=== PATIENT | male | born 1985 | race Caucasian/White ===

== ENCOUNTER 2023-11-28 15:40 | Outpatient (REF) | payer SELFPAY ==
[2023-11-28 16:02] LABS: MANUAL DIFF FLAG NO
[2023-11-28 17:37] LABS: Basophils Percent Auto 0.4 % (0-2); Eosinophils Absolute Auto 0.2 X10*3/uL (0.0-0.4); Hematocrit 44.6 % (42.0-52.0); Hemoglobin 15.6 g/dl (14.0-18.0); Imm Gran Abs Auto 0.02 X10*3/uL (0.00-0.03); Imm Gran Pct Auto 0.2 % (0.0-0.4); Lymphocytes Absolute Auto 2.2 X10*3/uL (1.2-4.9); Lymphocytes Percent Auto 23.5 % (20-40); Mean Corpuscular Volume 79.9 fL (80.0-98.0); Mean Platelet Volume 10.2 fL (9.4-12.4); Monocytes Absolute Auto 0.8 X10*3/uL (0.1-1.2); Monocytes Percent Auto 8.5 % (2-11); Neutrophils Percent Auto 65.4 % (45-73); Platelet Count 314 X10*3/uL (160-400); Red Blood Count 5.58 X10*6/uL (4.60-5.80); Red Cell Distribution Width 12.6 % (11.0-16.0); White Blood Count 9.2 X10*3/uL (4.8-10.8)
[2023-11-28 18:00] LABS: Alanine Aminotransferase 44 U/L (0-40); Albumin Level 4.5 g/dL (3.5-5.0); Alkaline Phosphatase 101 U/L (39-117); Anion Gap 16 (12-20); Aspartate Amino Transferase 26 U/L (5-37); Bilirubin Total 0.7 mg/dL (0.0-1.0); Blood Urea Nitrogen 9 mg/dL (9-16); Calcium 9.8 mg/dL (8.4-10.2); Carbon Dioxide 26 mmol/L (22-29); Chloride 102 mmol/L (96-108); Cholesterol 199 mg/dL (<200); Estimated Glomerular Filt Rate > 60; Glucose Fasting 87 mg/dL (60-99); HDL Cholesterol 32 mg/dL (>40); LDL Cholesterol Calculated 148 mg/dL (<100); Potassium 3.1 mmol/L (3.3-5.1); Sodium 141 mmol/L (135-145); Triglycerides 97 mg/dL (<150)
[2023-11-28 18:09] LABS: Appearance Urine Cloudy; Color Urine Yellow; Glucose Urine UA Negative (Negative); Leukocyte Esterase Urine Trace (Negative); Nitrite Urine Negative (Negative); PH 7.5 (5.0-9.0); Specific Gravity - Urine 1.015 (1.005-1.025); UMIC TRIGGER UACC YES; Urine Blood Negative (Negative); Urine Ketones Negative (Negative); Urine Protein 30 (1+) mg/dL (Neg-Trace)
[2023-11-28 18:15] LABS: TSH reflex Free T4 1.87 uIU/mL (0.32-4.0)
[2023-11-28 18:20] LABS: Bacteria Urine None Seen (None Seen); Hyaline Casts Urine 0-2 /LPF (0-2); RBC Urine 0-2 /HPF (0-2); Squamous Epithelial Cell Urine 0-2 /HPF (0-2); WBC Urine 0-5 /HPF (0-5)
== END 2023-11-28 15:41 | disposition home or self-care (01) ==
LOC: HO.LAB 15:40
PROVIDERS: PCP Nurse Practitioner Family; Visit Provider Nurse Practitioner Family
DX: I10 Essential (primary) hypertension (principal)
CPT/HCPCS: 36415; 80053; 80061; 81001; 84443; 85025

== ENCOUNTER 2024-03-15 16:35 | Outpatient (AMB) | payer OTHER, SELFPAY ==
--- NOTE | 2024-03-15 16:41 | MHC.PC.OV ---
Vital Signs 03/15/24 16:43 Height 5 ft 5 in Weight 175 lb BMI 29.1 BP 160/100 H Blood Pressure Location Rt brachial Position Sitting Pulse 72 Pulse Source Pulse Oximeter Pulse Oximetry (%) 98 Oxygen Delivery Method Room Air Intake Visit Reasons: PE Intake Note: Patient here for physical exam. Allergies lisinopril [LISINOPRIL] Adverse Reaction (Unknown, Unverified 03/15/24 16:44) DRY COUGH Tobacco use date assessed: 03/15/24 Dental Screening Dental Screen Date: 03/15/24 Did you have a dental visit in the last 12 months?: No Did you have a dental problem in the last 6 months where you did not have access to dental care?: No Was dental information given to patient?: No HPI PE HPI Details Pt is here for a PE. Will order labs. Pt has been out of his losartan for approximately 1 week. He has refilled this and will start taking it again. Will have pt monitor his blood pressure at home and record readings, he will let me know if it sustains above 140/90. Denies chest pain, shortness of breath, headache, dizziness, and blurred vision. Pt is interested in seeing a therapist. Will have team reach out to pt. Denies any SI and HI. [facility] Medical History Anxiety and depression HTN (hypertension) Surgical History No pertinent past surgical history Family History Father Obesity HTN (hypertension) High cholesterol CVD (cardiovascular disease) History of heart bypass surgery Mother HTN (hypertension) Anxiety Maternal Uncle Substance use disorder Mental health disorder Social History Housing: House Patient Tobacco Use Status: Never used Tobacco e-Cigarette/Vaping Use: Never Used Second Hand Smoke Exposure: No service: No Current occupational status: employed Current occupation: [employer] Current occupational exposures/hazards: No Cognitive needs: No Hearing needs: No Vision needs: Yes Questionnaire PHQ-9 Over the last 2 weeks, how often have you been bothered by any of the following problems? [id number] - PHQ-9 Billing: Patient declined-do not bill Source: Developed by Drs. Rodrigo Abarca, Pauly Dhaliwal, Jay Feliciano and colleagues, with an educational josé luis from [employer]. Thrive Questionnaire Date Thrive assessed: 03/15/24 What is your living situation today?: I choose not to answer this question Within the past 12 months, did the food you bought not last and you didn't have the money to get more?: I choose not to answer this question Within the past 12 months, did you worry whether your food would run out before you got money to buy more?: I choose not to answer this question Do you have trouble paying for medicines?: I choose not to answer this question Do you have trouble getting transportation to medical appointments?: I choose not to answer this question Do you have trouble paying your heating and electricity bill?: I choose not to answer this question Do you have trouble taking care of your child, family member or friend?: I choose not to answer this question Do you have trouble with day-to-day activities such as bathing, preparing meals, shopping, managing finances, etc.?: I choose not to answer this question Are you currently unemployed and looking for a job?: I choose not to answer this question Are you interested in more education?: I choose not to answer this question Currently or been in a relationship where the following occur: I choose not to answer this question THRIVE Score: 0 AUDIT C Alcohol Use Questionnaire (AUDIT-C) 1. How often do you have a drink containing alcohol?: 4 or more times a week 2. How many drinks containing alcohol do you have on a typical day when you are drinking?: 1 or 2 3. How often do you have six or more drinks on one occasion?: Never Total Score: 4 Score Reviewed/Action Taken: No GANESH-7 AMB Questionnaire GANESH-7 Date GANESH - 7 assessed: 03/15/24 Source: Developed by Drs. Rodrigo Abarca, Pauly Dhaliwal, Jay Feliciano and colleagues, with an educational josé luis from [employer]. GANESH-7 Assessment Billing GANESH-7 Assessment Tool: pt declined-do not bill Review of Systems Const Denies chills and Denies fever(s) Eyes Denies blurry vision ENT Denies vertigo, Denies dizziness and Denies sore throat Card Denies chest pain at rest, Denies chest pain with activity, Denies diaphoresis, Denies dyspnea and Denies dyspnea on exertion Resp Denies cough, Denies dyspnea, Denies dyspnea on exertion and Denies wheezing GI Denies abdominal pain, Denies melena, Denies hematochezia, Denies constipation, Denies diarrhea and Denies loose stools Denies hematuria Musc Denies numbness and Denies tingling Skin/Breast Denies lesions Neuro Denies vertigo, Denies dizziness, Denies numbness and Denies tingling Psych Denies anxiety, Denies depression, Denies homicidal ideation, Denies suicidal ideation and Denies other (substance abuse) Aller/Immun Denies wheezing Physical exam (Primary Care) Vital Signs: Last Vital Signs Pulse 72 03/15/24 16:43 BP 160/100 H 03/15/24 16:43 Pulse Ox 98 03/15/24 16:43 Oxygen Delivery Method Room Air 03/15/24 16:43 BMI result Body Mass Index 29.1 Tobacco/Smoking Status: Tobacco use Status Tobacco use date assessed 03/15/24 03/15/24 16:49 Patient Tobacco Use Status Never used Tobacco 03/15/24 16:43 e-Cigarette/Vaping Use Never Used 03/15/24 16:43 Thrive Assessment: Date of Thrive Assessment Date Thrive assessed 03/15/24 03/15/24 16:53 Currently or been in a relationship where the following occur: I choose not to answer this question Const General: cooperative Nutritional Appearance: well nourished Orientation/consciousness: patient oriented x3 HENMT Head: Yes normal to inspection, Yes normocephalic and Yes atraumatic Ears: TM's normal bilaterally Eyes General: appearance normal, both eyes and all related structures Alignment and Position: alignment normal and position normal Neck Neck: Yes normal visual inspection and Yes no lymphadenopathy Thyroid: Thyroid normal Resp Effort & Inspection: normal respiratory effort Auscultation: clear to auscultation bilaterally Cardio Rate: regular rate Rhythm: regular rhythm Heart sounds: S1 normal heart sound present, S2 normal heart sound present and no murmurs GI Palpation (GI): Soft to palpation and nontender Auscultation: normal bowel sounds Male General Exam: Yes normal external exam Penis: normal penis Scrotum: scrotum normal, testes descended bilaterally and no inguinal hernias Testes: no testicular mass Skin Other: multiple skin tags to eyelid and bilat axillary regions Rashes: no rashes Neuro General: patient oriented x3, moves all extremities, no focal motor deficits and deep tendon reflexes 2+ bilaterally Romberg Test: Negative Psych Appearance: grossly normal Mental Status: mental status grossly normal Speech and movement: Normal speech and movement present Affect: normal affect Attitude: cooperative Thought process: Normal thought process present Thought content: Normal thought content present Insight: Good insight present (Psych) Judgement: Good judgement present (Psych) Assessment and Plan Assessment & Plan (1) HTN (hypertension): Code(s): I10 - Essential (primary) hypertension (2) Encounter for routine adult physical exam with abnormal findings: Code(s): Z00. - Encounter for general adult medical examination with abnormal findings Orders: Orders Complete Blood Count Auto Diff Today I10 - Essential (primary) hypertension, Z00. - Encounter for general adult medical examination with abnormal findings Comprehensive [place]. Panel Fast Today I10 - Essential (primary) hypertension, Z00. - Encounter for general adult medical examination with abnormal findings TSH reflex Free T4 Today I10 - Essential (primary) hypertension, Z00.01 - Encounter for general adult medical examination with abnormal findings UA CC w/rflx Micro + Cult Today I10 - Essential (primary) hypertension, Z00. - Encounter for general adult medical examination with abnormal findings Lipid Panel Today I10 - Essential (primary) hypertension, Z00.01 - Encounter for general adult medical examination with abnormal findings Coding Level of Care Code Est Pt Prev Care 40-64y(78961) Diagnoses HTN (hypertension) I10 Encounter for routine adult physical exam with abnormal findings Z.
[2024-03-15 16:43] VITALS: BP 160/100; PULSE 72; O2SAT 98; BMI 29.1
== END 2024-03-15 17:02 | disposition home or self-care (01) ==
PROVIDERS: Visit Provider Nurse Practitioner Family
DX: Z00.00 Encounter for general adult medical examination without abnormal findings (principal); I10 Essential (primary) hypertension
CPT/HCPCS: 99396

== ENCOUNTER 2024-04-25 12:56 | Emergency (ER) | payer OTHER, SELFPAY ==
--- NOTE | 2024-04-25 12:58 | ED_ITS ---
HPI - General Adult General Chief complaint: General Medical Stated complaint: Medication refill Time Seen by Provider: 04/25/24 13:56 Source: patient and old records reviewed Mode of arrival: ambulatory Limitations: no limitations History of Present Illness ED Provider: TACHO AGUILERA narrative: 39 yo male with PMH of HTN on losartan which he was able to fill and restart today - lost his insurance but able to get partial safety net. He also has been on clonazepam 1mg PRN daily last dose Tuesday now feels increased anxiety, racing heart, fatigue and malaise, nausea - he notes he tried to get clon[facility]epam but [facility] would not fill it due to insurance issue. He denies heavy ETOH abuse. No seizures. He does have hx of low K in past, no diarrhea, no cramps. MD complaint: ran out of meds Onset (ago): day(s) (Tuesday) Radiation: non-radiation Severity: moderate Relieving factors: none Exacerbating factors: other (lack of medications) Associated symptoms: loss of appetite, malaise and weakness Treatments prior to arrival: none Related Data Previous Rx's ?Medication ?Instructions ?Recorded venlafaxine 75 mg capsule,extended 75 mg PO .COMPLEX 90 days #270 caps 06/10/23 release 24 hr losartan 100 mg tablet 100 mg PO DAILY #30 tabs 03/07/24 clonazepam 1 mg tablet 1 mg PO DAILY PRN anxiety 30 days 04/20/24 #30 tabs clonazepam 1 mg tablet 1 mg PO DAILY PRN anxiety #25 tabs 04/25/24 Allergies Allergy/AdvReac Type Severity Reaction Status Date / Time lisinopril [LISINOPRIL] AdvReac Unknown DRY COUGH Verified 04/25/24 13:07 Review of Systems 2 Review of Systems: Constitutional : No Fever, No Chills, No Fatigue ENT/Mouth : No sore throat, No Rhinorrhea Eyes: No Eye Pain, No Swelling, No Redness Cardiovascular : No Chest Pain, No SOB, No Dyspnea on Exertion Respiratory : No Cough, No Sputum Gastrointestinal : pos Nausea, No Vomiting, No Diarrhea, No abdominal Pain Genitourinary : No Dysuria, No Urinary Frequency, No Hematuria, Musculoskeletal : No joint pain, No Myalgias, No Joint Swelling Skin : No Skin Lesions, No rash Neuro : pos Weakness, No Numbness, No Dizziness, positive Headache Psych : No Anxiety/Panic, No Depression Heme/Lymph: No Bruising, No Bleeding,No Lymphadenopathy All other systems reviewed and are negative [facility] Past Medical History Attestation statement: The following information was validated with the patient. Source: old records reviewed Medical History Anxiety and depression HTN (hypertension) Surgical History No pertinent past surgical history Family History Family History Father Obesity HTN (hypertension) High cholesterol CVD (cardiovascular disease) History of heart bypass surgery Mother HTN (hypertension) Anxiety Maternal Uncle Substance use disorder Mental health disorder Social History Social History Housing: House Patient Tobacco Use Status: Never used Tobacco e-Cigarette/Vaping Use: Never Used Second Hand Smoke Exposure: No Advance Directives: No Do you have a plan to hurt others: No Plan service: No Current occupational status: employed Current occupation: [employer] Current occupational exposures/hazards: No Cognitive needs: No Hearing needs: No Vision needs: Yes Physical Exam ED Vital Signs: Vital Signs - 24 hr 04/25/24 12:59 04/25/24 14:13 Temperature 96.2 F L 97.9 F Pulse Rate 97 102 H Respiratory Rate 18 15 Blood Pressure 177/122 H 179/108 H Pulse Oximetry 100 100 Oxygen Delivery Method Room Air Room Air BMI result Body Mass Index 29.2 Appearance: Alert. Oriented X3. No acute distress. anxious Eyes: Pupils equal, round and reactive to light. ENT: Pharynx normal. Neck: Normal inspection. Neck supple. CVS: Normal heart rate and rhythm. Pulses normal. Respiratory: No respiratory distress. Breath sounds normal. Abdomen: Soft and non-tender. Skin: Skin warm and dry. Normal skin color. Normal skin turgor. Extremities: No lower extremity edema. Neuro: Oriented X 3. No motor deficit. No sensory deficit. Course Course Course Narrative: This is an RME: Additional HPI, ROS, PE not included below will be deferred to primary provider. RME assessment and note performed by: Jessie Lozano PA-C This is a [id number]-male, with a hx of HTN and anxiety, who presents to the ER with complaints of difficulty sleeping, loss of appetite, high anxiety, racing heart rate, nausea, headache x 3 days. Pt states that he lost his insurance and has been without his clonazepam for 3 days. Plan: Labs, EKG, further ER evaluation needed. Medications Administered Generic Name Dose Route Start Last Admin Trade Name Freq PRN Reason Stop Dose Admin Sodium Chloride 1,000 mls @ 100 mls/hr 04/25/24 14:00 04/25/24 14:52 Ns IVCONT 100 mls/hr .Q10H RASHEL Administration Discontinued Medications Generic Name Dose Route Start Last Admin Trade Name Freq PRN Reason Stop Dose Admin Clonazepam 2 mg 04/25/24 14:21 04/25/24 14:43 Clonazepam 1 Mg Tablet PO 04/25/24 14:22 2 mg ONCE ONE Administration Potassium Chloride 10 meq in 100 mls @ 100 mls/hr 04/25/24 14:00 04/25/24 14:47 Potassium Chloride/H20 IV 04/25/24 14:59 100 mls/hr ONCE ONE Administration Potassium Chloride 40 meq 04/25/24 14:00 04/25/24 14:43 Potassium Chloride Packet 20 Meq Packet PO 04/25/24 14:01 40 meq ONCE ONE Administration Medical Decision Making Medical Decision Making MDM Narrative: 39 yo male with HTN and anxiety here feeling off and anxious due to lack of clonazepam at this time will obtain labs, EKG and start on IV and oral K. Will start on oral clonazepam as well can refill at [facility] per CM his safety net will cover it. Denies ETOH withdrawal. Differential Diagnosis Differential Diagnoses: The differential diagnosis associated with the presentation includes lyte abnormality, anxiety, non compliance Admission/Observation Consideration of admission/observation: Escalation of care including admission/observation considered VS improving he is feeling better suspect BP due to lack of losartan but he was able to fill today Lab Data MDM Lab Attestation statement: I reviewed the patient's lab results. 04/25/24 13:24 04/25/24 13:24 Labs: Lab Results 04/25/24 Range/Units 13:24 WBC 13.4 H (4.8-10.8) X10*3/uL RBC 5.69 (4.60-5.80) X10*6/uL Hgb 16.5 (14.0-18.0) g/dl Hct 45.2 (42.0-52.0) % MCV 79.4 L (80.0-98.0) fL MCH 29.0 (27.0-33.0) pg MCHC 36.5 H (31.0-36.0) g/dl RDW 12.4 (11.0-16.0) % Plt Count 364 (160-400) X10*3/uL MPV 9.3 L (9.4-12.4) fL Immature Gran % (Auto) 0.4 (0.0-0.4) % Neut % (Auto) 69.1 (45-73) % Lymph % (Auto) 21.4 (20-40) % Dane % (Auto) 7.8 (2-11) % Eos % (Auto) 0.9 (0-4) % Baso % (Auto) 0.4 (0-2) % Lymph # (Auto) 2.9 (1.2-4.9) X10*3/uL Dane # (Auto) 1.1 (0.1-1.2) X10*3/uL Eos # (Auto) 0.1 (0.0-0.4) X10*3/uL Baso # (Auto) 0.1 (0.0-0.2) X10*3/uL Abs Immat Gran (auto) 0.05 H (0.00-0.03) X10*3/uL Absolute Neuts (auto) 9.2 H (2.0-8.3) x10*3/uL Absolute Nucleated RBC 0.000 (0.0-0.012) X10*3/uL Nucleated RBC % (auto) 0.0 (0.0-0.2) /100WBC Sodium 140 (135-145) mmol/L Potassium 2.9 L* (3.3-5.1) mmol/L Chloride 105 (96-108) mmol/L Carbon Dioxide 22 (22-29) mmol/L Anion Gap 16 (12-20) BUN 8 L (9-16) mg/dL Creatinine 0.87 (0.5-1.4) mg/dL Estim Creat Clear Calc 108.6 Estimated GFR > 60 Random Glucose 103 (60-115) mg/dL Calcium 10.2 (8.4-10.2) mg/dL Magnesium 2.1 (1.6-2.6) mg/dL Total Bilirubin 1.3 H (0.0-1.0) mg/dL Direct Bilirubin 0.4 (0.0-0.5) mg/dL AST 18 (5-37) U/L ALT 32 (0-40) U/L Alkaline Phosphatase 90 (39-117) U/L Troponin I High Sens < 2.7 (<3.5-35.0) ng/L Total Protein 8.4 H (6.5-8.0) g/dL Albumin 4.9 (3.5-5.0) g/dL Ethyl Alcohol < 10 mg/dL Independent Interpretation I performed an independent interpretation of an: EKG Interpretation: Rate: 97 Rhythm: NSR [place]: left Normal P waves. Normal MAMIE. Normal QRS complex. ST T wave : no VIELKA, inverted t waves V1 qTC: 464 prior studies: no prior The study has been interpreted contemporaneously by me. . External Record Review External record reviewed: Outpatient record Prescription Management I considered prescription management with: Other Discharge Plan Discharge Clinical Impression: Acute hypokalemia, Acute anxiety Patient Disposition: Home, Self-Care Instructions: Hypokalemia (ED), Anxiety (ED) Additional Instructions: return for palpitations, muscle cramps or any other concerns should be able to fill prescription at [facility] return for any worsening symptoms or concerns. Prescriptions: New clonazepam 1 mg tablet 1 mg PO DAILY PRN (Reason: anxiety) Qty: 25 0RF Rx Instructions: chronic prescription insurance ran out on safety net No Action venlafaxine 75 mg capsule,extended release 24hr 75 mg PO .COMPLEX 90 Days Qty: 270 1RF Rx Instructions: 75 mg PO TID; losartan 100 mg tablet 100 mg PO DAILY Qty: 30 4RF clonazepam 1 mg tablet 1 mg PO DAILY PRN (Reason: anxiety) 30 Days Qty: 30 0RF Print Language: Icelandic
[2024-04-25 12:59] VITALS: BP 177/122; PULSE 97; RESP 18; TEMP 35.7; O2SAT 100; BMI 29.2
--- NOTE | 2024-04-25 13:05 | ECG_ITS ---
Test Reason : ANXIETY Blood Pressure : / mmHG Vent. Rate : 097 BPM Atrial Rate : 097 BPM P-R Int : 184 ms QRS Dur : 094 ms QT Int : 366 ms P-R-T Axes : 000 -29 013 degrees QTc Int : 464 ms Normal sinus rhythm Leftward axis nonspecific T wave changes Abnormal ECG No previous ECGs available Referred By: Jessie Lozano Electronically Signed By:Horacio Monsivais
[2024-04-25 13:29] LABS: MANUAL DIFF FLAG NO
[2024-04-25 13:33] LABS: Basophils Absolute Auto 0.1 X10*3/uL (0.0-0.2); Basophils Percent Auto 0.4 % (0-2); Eosinophils Absolute Auto 0.1 X10*3/uL (0.0-0.4); Eosinophils Percent Auto 0.9 % (0-4); Hematocrit 45.2 % (42.0-52.0); Hemoglobin 16.5 g/dl (14.0-18.0); Imm Gran Abs Auto 0.05 X10*3/uL (0.00-0.03); Imm Gran Pct Auto 0.4 % (0.0-0.4); Lymphocytes Absolute Auto 2.9 X10*3/uL (1.2-4.9); Lymphocytes Percent Auto 21.4 % (20-40); Mean Corpuscular HGB Conc 36.5 g/dl (31.0-36.0); Mean Corpuscular Volume 79.4 fL (80.0-98.0); Mean Platelet Volume 9.3 fL (9.4-12.4); Monocytes Absolute Auto 1.1 X10*3/uL (0.1-1.2); Monocytes Percent Auto 7.8 % (2-11); Neutrophils Absolute Auto 9.2 x10*3/uL (2.0-8.3); Neutrophils Percent Auto 69.1 % (45-73); Platelet Count 364 X10*3/uL (160-400); Red Blood Count 5.69 X10*6/uL (4.60-5.80); Red Cell Distribution Width 12.4 % (11.0-16.0); White Blood Count 13.4 X10*3/uL (4.8-10.8)
[2024-04-25 13:56] LABS: Alanine Aminotransferase 32 U/L (0-40); Albumin Level 4.9 g/dL (3.5-5.0); Alkaline Phosphatase 90 U/L (39-117); Anion Gap 16 (12-20); Aspartate Amino Transferase 18 U/L (5-37); Bilirubin Direct 0.4 mg/dL (0.0-0.5); Bilirubin Total 1.3 mg/dL (0.0-1.0); Blood Urea Nitrogen 8 mg/dL (9-16); Calcium 10.2 mg/dL (8.4-10.2); Carbon Dioxide 22 mmol/L (22-29); Chloride 105 mmol/L (96-108); Creatinine Clr Calc Pharmacy 108.6; Estimated Glomerular Filt Rate > 60; Glucose Random 103 mg/dL (60-115); Potassium 2.9 mmol/L (3.3-5.1); Sodium 140 mmol/L (135-145); Total Protein 8.4 g/dL (6.5-8.0)
[2024-04-25 14:08] LABS: Troponin-I High Sensitivity < 2.7 ng/L (<3.5-35.0)
[2024-04-25 14:13] VITALS: BP 179/108; PULSE 102; RESP 15; TEMP 36.6; O2SAT 100
[2024-04-25 14:22] LABS: Ethanol < 10 mg/dL; Magnesium 2.1 mg/dL (1.6-2.6)
[2024-04-25] MEDS: clonazePAM 1 MG TABLET 2 MG PO (14:43)
[2024-04-25] MEDS: Potassium Chloride Packet 20 MEQ PACKET 40 MEQ PO (14:43)
[2024-04-25] MEDS: Potassium Chloride/H20 10 MEQ/100 ML PIGGYBACK 100 MEQ IV (14:47)
[2024-04-25] MEDS: 0.9 % Sodium Chloride 1,000 ML 100 ML IVCONT (14:52)
[2024-04-25 16:07] VITALS: BP 162/122; PULSE 91; RESP 18; TEMP 36.6; O2SAT 98
== END 2024-04-25 16:13 | disposition home or self-care (01) ==
PROVIDERS: Physician Assistant Medical; Emergency Provider Emergency Medicine; PCP Nurse Practitioner Family
DX: E87.6 Hypokalemia (principal); F41.1 Generalized anxiety disorder; F43.0 Acute stress reaction; R53.1 Weakness; R94.31 Abnormal electrocardiogram [ECG] [EKG]; Z76.0 Encounter for issue of repeat prescription; Z51.81 Encounter for therapeutic drug level monitoring; Z79.899 Other long term (current) drug therapy
CPT/HCPCS: 36415; 80048; 80076; 80307; 83735; 84484; 85025; 93005; 96365; 96366; 99284; 99285; J3480

== ENCOUNTER → 2024-04-25 13:05 | Outpatient (BNV) | payer SELFPAY | PROVIDERS: Emergency Provider Emergency Medicine; PCP Nurse Practitioner Family; Visit Provider Internal Medicine Cardiovascular Disease | DX: R94.31 Abnormal electrocardiogram [ECG] [EKG] (principal) | CPT/HCPCS: 93010 ==

== ENCOUNTER 2024-06-13 15:39 | Outpatient (AMB) | payer OTHER, SELFPAY ==
--- NOTE | 2024-06-13 15:42 | MHC.OFFWIV ---
Intake Vital Signs 06/13/24 15:46 Weight 175 lb BP 146/90 H Blood Pressure Location Rt brachial Position Sitting Pulse 105 H Pulse Source Pulse Oximeter Pulse Oximetry (%) 96 Oxygen Delivery Method Room Air Intake Visit Reasons: EP rt eye swollen Intake Note: Patient here for right eye swelling that started last night w/just some slight itching and woke up w/redness and swollen. Patient Tobacco Use Status: Never used Tobacco Allergies lisinopril [LISINOPRIL] Adverse Reaction (Unknown, Verified 06/13/24 15:46) DRY COUGH Do you need a note to return to daycare/school/sports/work: Yes HPI EP rt eye swollen HPI Details This note is constructed using voice recognition software. While every effort has been made to ensure accuracy, mandarin speaking nanny errors may have been included. The patient is a 39 year old male who presents to the clinic today with right eye swelling since yesterday. No change in vision. He has a contact wearer. He is wearing glasses today. He did not get anything in his eye. COUNT INCLUDES THE [facility] Medical History Anxiety and depression HTN (hypertension) Surgical History No pertinent past surgical history Family History Father Obesity HTN (hypertension) High cholesterol CVD (cardiovascular disease) History of heart bypass surgery Mother HTN (hypertension) Anxiety Maternal Uncle Substance use disorder Mental health disorder Social History Housing: House Patient Tobacco Use Status: Never used Tobacco e-Cigarette/Vaping Use: Never Used Second Hand Smoke Exposure: No service: No Current occupational status: employed Current occupation: [employer] Current occupational exposures/hazards: No Cognitive needs: No Hearing needs: No Vision needs: Yes Review of Systems Const All systems reviewed & are unremarkable except as noted in HPI and below Physical Exam Vital Signs: Last Vital Signs Pulse 105 H 06/13/24 15:46 BP 146/90 H 06/13/24 15:46 Pulse Ox 96 06/13/24 15:46 Oxygen Delivery Method Room Air 06/13/24 15:46 Const General: cooperative, healthy appearing, comfortable, no acute distress and alert Orientation/consciousness: patient oriented x3 Limitations: no limitations HEENT Head: Yes normal to inspection and Yes normocephalic Ears: hearing grossly normal bilaterally General nose exam: Normal external nose present Face and sinus: Yes normal facial exam and Yes sinuses nontender Mouth: Normal oral and palatal mucosa present and tongue normal Teeth and gingiva: dentition normal Throat: Yes posterior oropharynx normal Eyes Other: Hordeolum present to left lower eyelid. Visual Oneill: normal visual oneill by confrontation Conjunctivae: conjunctivae normal Sclerae: sclerae normal Corneas: corneas normal Pupils: Equal, round and reactive pupils present EOM: EOMs intact bilaterally Direct Ophthalmoscopy: normal light reflex Skin General skin exam: no rashes or lesions noted, elasticity normal and turgor normal Neuro General: patient oriented x3 Cranial nerves: Yes Equal, round and reactive pupils present Psych Appearance: grossly normal Mental Status: mental status grossly normal Speech and movement: Normal speech and movement present Affect: normal affect Assessment & Plan Assessment & Plan (1) Hordeolum externum left lower eyelid: Code(s): H00.015 - Hordeolum externum left lower eyelid Plan: Erythromycin ointment ordered for symptomatic management not infection management. Advised patient to do warm compresses 4 times a day and avoid contacts at this time. Advised patient to follow up with Ophthalmology should he develop any difficulty with vision, or have repeat evaluation with worsening or failure to resolve. Plan See above for full details and plan. Medications: New erythromycin 0.5 inches ophthalmic (eye) TID 3.5 grams 0RF 7 days Coding Level of Care Code Est Pt Level 3 (52085) Diagnoses Hordeolum externum left lower eyelid H00.015
[2024-06-13 15:46] VITALS: BP 146/90; PULSE 105; O2SAT 96
== END 2024-06-13 15:58 | disposition home or self-care (01) ==
PROVIDERS: PCP Nurse Practitioner Family; Visit Provider Registered Nurse
DX: H00.015 Hordeolum externum left lower eyelid (principal)
CPT/HCPCS: 99213

== ENCOUNTER 2025-04-17 15:07 | Outpatient (AMB) | payer OTHER, SELFPAY ==
--- NOTE | 2025-04-17 15:12 | MHC.PC.OV ---
Vital Signs 04/17/25 15:13 04/17/25 15:37 Height 5 ft 5 in Weight 188 lb BMI 31.3 BP 146/92 H 144/90 H Blood Pressure Location Rt brachial Lt brachial Position Sitting Sitting Pulse 86 Pulse Source Pulse Oximeter Pulse Oximetry (%) 97 Intake Visit Reasons: PE Allergies lisinopril (LISINOPRIL) Adverse Reaction (Unknown, Verified 04/17/25 15:13) DRY COUGH Medication List - Last Reconciled 04/17/25 by DAVION Catherine- clonazepam 1 mg PO DAILY PRN 30 days losartan-hydrochlorothiazide 100-12.5 mg 1 tab PO DAILY venlafaxine ER 75 mg PO TID; 90 days Tobacco use date assessed: 04/17/25 Dental Screening Dental Screen Date: 04/17/25 Did you have a dental visit in the last 12 months?: Yes Did you have a dental problem in the last 6 months where you did not have access to dental care?: No Was dental information given to patient?: Patient has dentist HPI PE HPI Details History of Present Illness The patient is a 40-year-old male presenting with a physical exam. He denies experiencing any dyspnea, chest pain, abdominal pain, hematochezia, constipation, or diarrhea. He also denies any suicidal or homicidal ideation and is currently under the care of a therapist and transitioning to a new psychiatrist. The patient has multiple skin tags located on the eyelids and periorbital regions. He also presents with slight abrasions on both shins, more pronounced on the left side. HTN: adding HCTZ to his 100mg losartan. encouraged home BPs, labs ordered Health Maintenance - Regular psychiatric medication management Social History Review of Systems - Respiratory: Denies dyspnea - Cardiovascular: Denies chest pain - Gastrointestinal: Denies abdominal pain, hematochezia, constipation, diarrhea - Psychiatric: Denies suicidal ideation, denies homicidal ideation Physical Exam General: Cooperative, healthy appearing, comfortable, no acute distress and well developed Orientation: Patient oriented x3 Limitations: No limitations Head: Normal to inspection Ears: Hearing grossly normal bilaterally Nose: Normal external nose present Face and sinus: Normal facial exam Eyes: Appearance normal, both eyes and all related structures Neck: Normal visual inspection and Yes full ROM Respiratory: Normal respiratory effort and able to speak in complete sentences. Clear to auscultation bilaterally Cardiovascular: Regular rate and rhythm. Normal S1 and S2 GI: Normal to inspection. Soft to palpation and nontender : testicles without masses/lesions and no hernias appreciated Skin: Multiple skin tags on eyelids and around the overall regions. Slight abrasions mostly to left [place] but present bilaterally Neuro: Patient oriented x3 Extremities: Normal to inspection Results Plan The patient will continue with regular psychiatric medication management as he transitions to a new psychiatrist. Hydrocortisone cream is recommended for the abrasions on the shins to aid in healing. Discussion Notes I discussed with the patient the continuation of his psychiatric medication management as he transitions to a new psychiatrist. I also recommended the use of hydrocortisone cream for the abrasions on his shins. Patient Instructions - Continue taking psychiatric medications as prescribed. - Apply hydrocortisone cream to the abrasions on your shins as directed. [facility] Medical History Anxiety and depression HTN (hypertension) Surgical History No pertinent past surgical history Family History Father Obesity HTN (hypertension) High cholesterol CVD (cardiovascular disease) History of heart bypass surgery Mother HTN (hypertension) Anxiety Maternal Uncle Substance use disorder Mental health disorder Social History Housing: House Patient Tobacco Use Status: Never used Tobacco e-Cigarette/Vaping Use: Never Used Second Hand Smoke Exposure: No service: No Current occupational status: employed Current occupation: [employer] Current occupational exposures/hazards: No Cognitive needs: No Hearing needs: No Vision needs: Yes Questionnaire PHQ-9 Over the last 2 weeks, how often have you been bothered by any of the following problems? 34246 - PHQ-9 Billing: Patient declined-do not bill Source: Developed by Drs. Rodrigo Abarca, Pauly Dhaliwal, Jay Feliciano and colleagues, with an educational josé luis from [employer]. Thrive Questionnaire Date Thrive assessed: 04/17/25 What is your living situation today?: I choose not to answer this question Within the past 12 months, did the food you bought not last and you didn't have the money to get more?: I choose not to answer this question Within the past 12 months, did you worry whether your food would run out before you got money to buy more?: I choose not to answer this question Do you have trouble paying for medicines?: I choose not to answer this question Do you have trouble getting transportation to medical appointments?: I choose not to answer this question Do you have trouble paying your heating and electricity bill?: I choose not to answer this question Do you have trouble taking care of your child, family member or friend?: I choose not to answer this question Do you have trouble with day-to-day activities such as bathing, preparing meals, shopping, managing finances, etc.?: I choose not to answer this question Are you currently unemployed and looking for a job?: I choose not to answer this question Are you interested in more education?: I choose not to answer this question Currently or been in a relationship where the following occur: I choose not to answer THRIVE Score: 0 AUDIT C Alcohol Use Questionnaire (AUDIT-C) 1. How often do you have a drink containing alcohol?: 4 or more times a week 2. How many drinks containing alcohol do you have on a typical day when you are drinking?: 1 or 2 3. How often do you have six or more drinks on one occasion?: Never Total Score: 4 Score Reviewed/Action Taken: Yes GANESH-7 AMB Questionnaire GANESH-7 Date GANESH - 7 assessed: 04/17/25 (patient declined) Source: Developed by Drs. Rodrigo Abarca, Pauly Dhaliwal, Jay Feliciano and colleagues, with an educational josé luis from [employer]. GANESH-7 Assessment Billing GANESH-7 Assessment Tool: GANESH-7 Assessment 19704 (patient declined) Physical exam (Primary Care) Vital Signs: Last Vital Signs Pulse 86 04/17/25 15:13 BP 144/90 H 04/17/25 15:37 Pulse Ox 97 04/17/25 15:13 BMI result Body Mass Index 31.3 Tobacco/Smoking Status: Tobacco use Status Tobacco use date assessed 04/17/25 04/17/25 15:17 Patient Tobacco Use Status Never used Tobacco 04/17/25 15:17 e-Cigarette/Vaping Use Never Used 04/17/25 15:17 Thrive Assessment: Date of Thrive Assessment Date Thrive assessed 04/17/25 04/17/25 15:17 Currently or been in a relationship where the following occur: I choose not to answer Coding Level of Care Code Est Pt Prev Care 40-64y(02237) Diagnoses Physical exam Z00.00 HTN (hypertension) I10 Additional Codes GANESH-7 Assessment Billing - GANESH-7 Assessment Tool: GANESH-7 Assessment 61149 ([id number]) Assessment & Plan Assessment & Plan (1) Physical exam: Code(s): Z00.00 - Encounter for general adult medical examination without abnormal findings Category: Medical (2) HTN (hypertension): Code(s): I10 - Essential (primary) hypertension Category: Medical Plan . Orders: Orders Complete Blood Count Auto Diff Today Z00.00 - Encounter for general adult medical examination without abnormal findings Comprehensive [place]. Panel Fast Today Z00.00 - Encounter for general adult medical examination without abnormal findings UA CC w/rflx Micro + Cult Today Z00.00 - Encounter for general adult medical examination without abnormal findings TSH reflex Free T4 Today Z00.00 - Encounter for general adult medical examination without abnormal findings Lipid Panel Today Z00.00 - Encounter for general adult medical examination without abnormal findings Medications: New losartan-hydrochlorothiazide 100-12.5 mg 1 tab PO DAILY 90 tabs 0RF Refilled clonazepam 1 mg PO DAILY PRN 30 tabs 3RF anxiety 30 days Discontinued losartan Discontinued Reason: Doctor's Order 100 mg PO DAILY 90 tabs 1RF
[2025-04-17 15:13] VITALS: BP 146/92; PULSE 86; O2SAT 97; BMI 31.3
[2025-04-17 15:37] VITALS: BP 144/90
== END 2025-04-17 15:46 | disposition home or self-care (01) ==
LOC: HO.HMCC 15:07
PROVIDERS: PCP Nurse Practitioner Family; Visit Provider Nurse Practitioner Family
DX: Z00.00 Encounter for general adult medical examination without abnormal findings (principal); I10 Essential (primary) hypertension

== ENCOUNTER → 2025-04-17 15:07 | Outpatient (BNVA) | payer OTHER, SELFPAY | PROVIDERS: PCP Nurse Practitioner Family; Visit Provider Nurse Practitioner Family | DX: Z00.00 Encounter for general adult medical examination without abnormal findings (principal); I10 Essential (primary) hypertension | CPT/HCPCS: 96127; 99396 ==